=== PATIENT | male | born 1970 | race Two or more races ===

== ENCOUNTER 2021-01-02 05:50 | Day surgery (SDC) | payer OTHER ==
[~2021-01-02 05:50] MED LIST: ALLOPURINOL100 MG PO
== END 2021-01-02 19:30 | disposition home or self-care (01) ==
LOC: CIR.AMB 05:50
PROVIDERS: ATTEND Orthopaedic Surgery Hand Surgery
DX: M70.21 Olecranon bursitis, right elbow (principal); Z20.822 Contact with and (suspected) exposure to COVID-19